=== PATIENT | female | born 1990 | race Caucasian/White ===

== ENCOUNTER 2022-04-22 00:40 | Inpatient (IN) ==
[2022-04-22] MEDS ORDERED: OXYTOCIN 30 UNITS/500 ML BAG IV PRN ×2 (02:11→03:42)
[2022-04-22] MEDS ORDERED: PENICILLIN G POTASSIUM 6 MU in DEXTROSE 5% 250 ML IV STA (02:11)
[2022-04-22] MEDS ORDERED: LIDOCAINE 1% LOCAL 20 ML VIAL INFIL PRN (02:11)
[2022-04-22] MEDS ORDERED: LACTATED RINGER'S 1,000 ML IV PRN (02:11)
--- NOTE | 2022-04-22 02:14 | History & Physical Report ---
Date of Service April 22, 2022 History of Present Illness Primary Care Provider: Krys Jorge Allergies Allergy/AdvReac Type Severity Reaction Status Date / Time No Known Allergies Allergy Verified 04/06/22 12:13 Home Medications Medication Instructions Recorded Confirmed Type prenat.vits,fredy,[id number] 1 tab PO DAILY 02/06/22 04/06/22 History Patient History Medical History (Updated 02/16/22 @ 12:49 by Shaunna Washington) Heart murmur Varicella vaccination Surgical History (Updated 02/15/22 @ 09:03 by Keara Hendrickson) S/P wisdom tooth extraction Family History (Updated 02/15/22 @ 09:05 by Keara Hendrickson) Grandfather (Maternal) Heart disease Grandmother Breast cancer great grandmother Family/Other Autism niece Kleefstra syndrome niece Denies family history of Ovarian cancer Colorectal cancer Social History (Updated 02/15/22 @ 08:56 by Keara Hendrickson) Smoking Status: Former smoker marital status: marital status details: Robbin York (24) Current Living Situation: Spouse and Family Current Living Situation Comment: lives with spouse, 2 children, dogs, cat- spouse changing litter current occupational status: unemployed Results & Data ([facility]) Vital Signs (Past 12 Hours) Vital Signs Temp Resp 04/22/22 01:24 36.7 C 20 Coding
[2022-04-22 02:35] LABS: Hematocrit (blood only) 32.3 % (34.1-44.9); Hemoglobin 11.3 g/dl (12.0-16.0); Mean Corpuscular Hemoglobin 32.4 pg (25.0-34.0); Mean Corpuscular Volume 92.6 fL (80.0-100.0); Mean Platelet Volume 10.3 fL (9.4-12.3); Platelet Count 192 K/uL (130-400); RDW Coefficient of Variation 13.1 % (11.5-14.5); RDW Standard Deviation 43.7 fL (36.4-46.3); Red Blood Count 3.49 M/uL (3.93-5.22); White Blood Count 11.73 K/ul (4.8-10.8)
--- NOTE | 2022-04-22 02:42 | Anesthesiology Consultation ---
Date of Service April 22, 2022 Assessment & Plan ASA ASA2 Proposed Anesthesia Anesthesia Type: Labor Epidural Risk / Benefits Reviewed With: PT / POA / Parent / Guardian, Accepts Plan and Informed Consent Obtained History Height/Weight Height: 5 ft 9 in Weight: 69.853 kg Allergies Allergy/AdvReac Type Severity Reaction Status Date / Time No Known Allergies Allergy Verified 04/06/22 12:13 Medications Home Medications Medication Instructions Recorded Confirmed Last Taken prenat.vits,fredy,[id number] 1 tab PO DAILY 02/06/22 04/06/22 Unknown Active Medications Generic Name Dose Route Start Last Admin Trade Name Freq PRN Reason Stop Dose Admin Lactated Ringer's 1,000 mls @ 125 mls/hr 04/22/22 02:11 04/22/22 02:26 Lr IV 04/24/22 02:10 999 mls/hr .Q8H PRN Administration L&D Protocol Protocol Past Medical History Medical History Heart murmur Varicella vaccination Exercise / Class Metabolic Activity II 4-5 Yardwork/Stairs/Walk up hill Past Family History Family History Grandfather (Maternal) Heart disease Grandmother Breast cancer great grandmother Family/Other Autism niece Kleefstra syndrome niece Denies family history of Ovarian cancer Colorectal cancer Past Surgical History Surgical History S/P wisdom tooth extraction Past Anesthesia History No Hx of Anesthesia Complications and No Family Hx of Anesthesia Complications History of PONV No Hx of PONV and No Hx of Motion Sickness Social History Smoking Status: Current some day smoker Hx Alcohol Use: No Hx Substance Use: No Review of Systems denies fever/cough/ colds/ chest pain/ SOB/ ANICETO denies ANICETO Physical Exam Vital Signs Last Vital Signs Temp 36.7 C 04/22/22 01:24 Resp 20 04/22/22 01:24 ENMT Mouth: no TMJ abnormality and no dentition abnormality Thyromental Distance: > or= 3.5 Finger Breadths Mallampati Class: II Neck neck extension not limited Respiratory normal respiratory effort; no respiratory distress Auscultation: lungs clear to auscultation bilaterally Cardiovascular Rate/Rhythm: regular rate and regular rhythm Neurologic moves all extremities Psychiatric Orientation: alert and oriented x 3 Testing Laboratory Results 04/22/22 02:26
[2022-04-22] MEDS ORDERED: ePHEDrine sulfate 50 MG/ML AMP ONE (02:43)
[2022-04-22] MEDS ORDERED: NALOXONE HCL 1 MG in SODIUM CHLORIDE 0.9% 1000ML 1,000 ML IV PRN (02:43)
[2022-04-22] MEDS ORDERED: BUPIVACAINE 0.25% 30 ML VIAL ONE (02:43)
[2022-04-22] MEDS ORDERED: diphenhydrAMINE 50 MG/ML VIAL IV PRN (02:43)
[2022-04-22] MEDS ORDERED: SODIUM CHLORIDE 0.9% INJ 10 ML VIAL ONE (02:43)
[2022-04-22] MEDS ORDERED: fentaNYL 2MCG/ML ROPIVACAINE 1.25MG/ML 100 ML BAG EPI PRN (02:43)
[2022-04-22] MEDS ORDERED: NALBUPHINE HCL INJ 10 MG/ML AMP IV PRN (02:43)
[2022-04-22] MEDS ORDERED: LIDOCAINE 2%/EPINEPHRINE 1:200,000 20 ML SDV ONE (02:43)
[2022-04-22] MEDS ORDERED: ePHEDrine sulfate 50 MG/ML AMP IV PRN (02:43)
[2022-04-22] MEDS ORDERED: fentaNYL citrate 100 MCG/2 ML VIAL ONE (02:43)
[2022-04-22] MEDS ORDERED: NALOXONE HCL 0.4 MG/1 ML VIAL/CARP IV PRN (02:43)
[2022-04-22] MEDS ORDERED: ONDANSETRON INJ 2 MG/ML 2 ML VIAL IV PRN (02:43)
[2022-04-22] MEDS ORDERED: fentaNYL 2MCG/ML ROPIVACAINE 1.25MG/ML 100 ML BAG EPI ONE (02:44)
[2022-04-22] MEDS ORDERED: BENZOCAINE 20% AER SPR 82.5 GM CAN EXT PRN (03:42)
[2022-04-22] MEDS ORDERED: HYDROCORTISONE ACETATE 25 MG SUPP PR PRN (03:42)
[2022-04-22] MEDS ORDERED: DIPHTHERIA/TETANUS/PERTUSSIS 0.5mL SYR/VIAL (Age 7+yrs) IM ONE (03:42)
[2022-04-22] MEDS ORDERED: ACETAMINOPHEN 325 MG TAB PO PRN (03:42)
[2022-04-22] MEDS ORDERED: bisacodyL 10 MG SUPP PR PRN (03:42)
[2022-04-22] MEDS ORDERED: PENICILLIN G POTASSIUM 3 MU in DEXTROSE 5% 100 ML IV PRN (05:12)
--- NOTE | 2022-04-22 07:59 | Anesthesia Procedure Note ---
Date of Service April 22, 2022 Anesthesia Post Epidural Note Vital Signs Vital Signs: Temp Pulse Resp BP Pulse Ox 36.4 C L 76 18 117/58 L 98 04/22/22 03:46 04/22/22 07:51 04/22/22 03:46 04/22/22 07:51 04/22/22 03:32 Notes Mental Status: alert / awake / arousable Nausea / Vomiting: adequately controlled Pain: adequately controlled Airway Patency, RR, SpO2: stable & adequate BP & HR: stable & adequate Hydration State: stable & adequate Neuraxial Anesthesia: was administered and sensory block is resolving Anesthetic Complications: no major complications apparent Epidural: Removed without complications and With tip intact
--- NOTE | 2022-04-22 08:08 | Delivery Summary ---
DATE OF SERVICE: 04/22/2022 PROCEDURE: Normal spontaneous vaginal delivery. SURGEON: Kimani Doan MD. PREOPERATIVE DIAGNOSES: 1. Single intrauterine at 40 weeks 2 days gestational age. 2. Spontaneous labor. 3. GBS positive. 4. Anti-M antibody positive. 5. Rh negative. POSTOPERATIVE DIAGNOSES: 1. Single intrauterine at 40 weeks 2 days gestational age. 2. Spontaneous labor. 3. GBS positive. 4. Anti-M antibody positive. 5. Rh negative. 6. Status post delivery. ESTIMATED BLOOD LOSS: 100 mL DRAINS: None. FLUIDS: Continuous lactated Ringer. URINE OUTPUT: None. COMPLICATIONS: None. FINDINGS: Viable with weight and Apgars pending. HOSPITAL COURSE: The patient presented to labor and delivery in active labor. She was initially giv en a roughly 1 hour labor check. On labor evaluation, the patient was initially found to be 3 cm dila jelly. On recheck one hour later, she was found to be 4 cm dilated. The patient was admitted and given epidural per request. The patient precipitously was complete-complete, +2 station with a strong urg e to push and within a short period of received an epidural. The patient pushed over approximately 2 contractions to achieve delivery. DESCRIPTION OF PROCEDURE: The patient progressed to 10 cm dilated, 100% effaced, positive 2 station, pushed over intact perineum with epidural anesthesia, delivered a viable with weight and Apg ars as noted above. Head of the delivered in SOFIA position, restituted to right transverse. A tight nuchal cord was noted, which was delivered through. Body and shoulders quickly followed. Ne zeina was noted to be vigorous soon after delivery and 1 minute delayed cord clamping was initiated. Cord was then double clamped and cut. remained on maternal abdomen. Attention was then tur cher to delivery of the placenta, which was delivered, 3-vessel cord, gentle cord traction. On inspect ion of the perineum, vagina and cervix, there was noted to be no lacerations. Sponge and instrument counts were correct at the completion of the case with mother and stable in the immediate pos t-delivery period. Job ID: [id number]
[2022-04-22] MEDS: FERROUS SULFATE 325 MG TAB PO SCH (08:46)
[2022-04-22] MEDS: DOCUSATE SODIUM 100 MG CAP PO SCH ×2 (08:46→20:30)
[2022-04-22] MEDS: PRENATAL VITAMIN 1 TAB PO SCH (08:46)
[2022-04-22] MEDS: IBUPROFEN 600 MG TAB PO PRN (20:30)
[2022-04-23] MEDS: FERROUS SULFATE 325 MG TAB PO SCH (07:43)
[2022-04-23] MEDS: PRENATAL VITAMIN 1 TAB PO SCH (07:43)
[2022-04-23] MEDS: DOCUSATE SODIUM 100 MG CAP PO SCH (07:43)
[2022-04-23] MEDS: IBUPROFEN 600 MG TAB PO PRN (07:43)
--- NOTE | 2022-04-23 07:44 | Obstetrical Progress Note ---
Date of Service April 23, 2022 Assessment & Plan (1) Encounter for care and examination after delivery: satisfactory course continue current care plan discharge today Subjective Ambulation: ambulating normally Voiding: no voiding problems Passing Gas:: Yes Diet Tolerance:: regular diet Lochia:: Small Feeding Type:: breast feeding Review of Systems All systems reviewed & are unremarkable except as noted in HPI & below Physical Exam Constitutional WD/WN, vitals as above Psychiatric A+Ox3, euthymic affect Genitourinary OB Exam Abdomen: + fundal height Fundus: + firm and + relation to umbilicus (2 below) Results & Data ([facility]) Vital Signs (Past 12 Hours) Vital Signs Temp Pulse Resp BP Pulse Ox O2 Del Method 04/23/22 07:33 97.5 F L 78 18 118/81 99 Room Air 04/23/22 03:16 97.7 F 61 18 107/68 99 Room Air 04/22/22 22:53 97.9 F 72 16 111/68 98 Room Air 04/22/22 20:30 97.9 F 76 18 125/82 Room Air
[2022-04-23] MEDS ORDERED: bisacodyL 5 MG TABEC PO SCH (20:00)
== END 2022-04-23 14:20 | disposition home or self-care (01) | DRG 807 ==
LOC: OPB 00:40 → 4S1 00:42 → 4E2 08:32

== ENCOUNTER 2023-06-21 03:49 | Inpatient (IN) ==
[2023-06-21] MEDS ORDERED: LIDOCAINE 1% LOCAL 20 ML VIAL INFIL PRN (04:34)
[2023-06-21] MEDS: LACTATED RINGER'S 1,000 ML IV PRN (04:55)
[2023-06-21] MEDS: PENICILLIN GK 6 MU in DEXTROSE 5% 250 ML IV STA (05:11)
[2023-06-21 05:15] LABS: Hematocrit (blood only) 34.2 % (37.0-47.0); Hemoglobin 11.5 g/dl (12.0-16.0); Mean Corpuscular Hemoglobin 30.3 pg (25.0-34.0); Mean Corpuscular Hgb Conc 33.6 g/dL (32.0-36.0); Mean Corpuscular Volume 90.2 fL (80.0-100.0); Mean Platelet Volume 9.9 fL (9.4-12.4); Platelet Count 323 K/uL (130-400); RDW Coefficient of Variation 13.2 % (11.5-14.5); RDW Standard Deviation 43.8 fL (36.4-46.3); Red Blood Count 3.79 M/uL (4.20-5.40); White Blood Count 15.86 K/ul (4.8-10.8)
[2023-06-21] MEDS: OXYTOCIN 30 UNITS/NSS 30 UNITS/500 ML BAG IV PRN (05:21)
--- NOTE | 2023-06-21 05:34 | History & Physical Report ---
Date of Service June 21, 2023 Assessment & Plan (1) Encounter for supervision of normal in multigravida: Plan: Admit to L&D. EFM/toco. Desires epidural, however suspect will not have enough time to get epidural prior to delivery. There will likely not be enough time for lab to crossmatch appropriate blood. Will send type & screen tube. Given patient's level of discomfort, unable to elicit information from her about her lack of care visits. Came to office for a visit in April, there is a cancelled visit in May, I do not see any messages or communication from her in our chart system. Recommend urine drug screen and social science analyst c onsult to eval/help patient with needs given her lack of care. Admission and Anticipated Discharge Date Admission Date: June 21, 2023 History of Present Illness Chief Complaint: labor Primary Care Provider: Krys Jorge 32yo @ 40 07/14, presented to labor and delivery with contractions, very uncomfortable. Last OB office visit was 04/26/2023. Late Care Need for Rhogam d/t Rh negative mother Anti M positive 02/27/23 q4 weeks titres first titer 02/17--1:1, not titerable Allergies Allergy/AdvReac Type Severity Reaction Status Date / Time No Known Allergies Allergy Verified 04/26/23 12:28 Home Medications Medication Instructions Recorded Confirmed Type prenat.vits,fredy,eww-[id number]-jafto 1 tab PO DAILY 02/06/22 06/21/23 History Patient History Medical History Varicella vaccination Heart murmur Surgical History S/P wisdom tooth extraction Family History Grandfather (Maternal) Heart disease Grandmother Breast cancer Family/Other Autism Kleefstra syndrome Denies family history of Ovarian cancer Colorectal cancer Social History Smoking Status: Former smoker Tobacco Type: Cigarettes Cigarettes Per Day: 1/2 pack; Smoking End Date: at beginning of ; Second Hand Exposure: Yes; Do You Dip or Chew Tobacco: No; Hx Alcohol Use: No Hx Substance Use: No Preferred Language: Indonesian Adapted Physical Education Aide Required: No Beliefs That Will Affect Care: None marital status: marital status details: Robbin York (25) Current Living Situation: Spouse Current Living Situation Comment: lives with spouse, 3 children, dogs, guinea pig,cat-spouse changing litter current occupational status: unemployed 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 Other Information That Helps Us Care for You: No Feels Safe at Home: Yes Safety Concerns: Feels Safe At This Time Assistive Devices: None Review of Systems All systems reviewed & are unremarkable except as noted in HPI & below Physical Exam Physical Exam: 7cm/100/+1 FHT Cat 1 [place] Q 2-3 Constitutional: WD/WN, vitals as above Respiratory: normal respiratory effort, lungs clear to auscultation no respiratory distress Cardiovascular: Rate/Rhythm: regular rate and regular rhythm Gastrointestinal (Abdomen): Inspection/Auscultation: abdomen normal to inspection Percussion/Palpation: abdomen soft; abdomen nontender Gravid. No s/s chorio or abruption. Skin: no rashes, warm and dry Psychiatric: A+Ox3, euthymic affect Results & Data Vital Signs (Past 12 Hours) Vital Signs Temp Pulse Resp BP 06/21/23 04:15 36.8 C 18 06/21/23 04:12 101 H 131/80 Coding Level of Care Code None Diagnoses Encounter for supervision of normal in multigravida Z34.80
--- NOTE | 2023-06-21 05:39 | Delivery Summary ---
Vaginal Delivery Summary Date of Service June 21, 2023 Vaginal Delivery Summary [facility] Vaginal Delivery Summary: Pre-delivery diagnoses: 32yo @ 39 4/7, spontaneous labor, Rh negative, Anti-M positive, insufficient care Post-delivery diagnoses: same Procedure: spontaneous vaginal delivery Surgeon: Catherine Epperson DO Complications: none Findings: Viable male . Apgars: 8/9. Weight pending, please see nursery records Estimated blood loss: 300ml Description of delivery: The patient progressed to complete quickly without anesthesia after spontaneous rupture of membranes for clear fluid. She then began to push. During a push, forebag ruptured with hemostat for clear fluid. She spontaneously vaginally delivered a viable from the cephalic presentation. The head delivered in ANGELI position. Nuchal noted, too tight to reduce, delivered through. The anterior shoulder delivered, followed by the posterior shoulder, followed by the body. The baby was placed on mother's abdomen and a spontaneous cry was heard. Delayed cord clamping was employed, and the cord was doubly clamped and cut. Cord blood was obtained. The placenta was delivered spontaneously intact with a 3-vessel cord. The uterus and vagina were swept of clots and debris. IV pitocin was given. The uterus became firm. The cervix, vagina, and perineum were inspected and no lacerations were noted. Excellent hemostasis was observed. The mother and baby are recovering in stable and good condition in the room. Sponge and instrument counts were correct x 2. Catherine Epperson DO [facility] Vaginal Delivery Charge Vaginal Delivery Codes: 05237 global code for the antepartum, delivery, and post- Delivery Type Details: [facility]
[2023-06-21 05:48] LABS: Amphetamines+Metham, Urine Neg (Neg); Barbiturates, Urine Neg (Neg); Benzodiazepine, Urine Neg (Neg); Cocaine, Urine Neg (Neg); MDMA (Ecstacy), Urine Neg (Neg); Marijuana, Urine Neg (Neg); Methadone, Urine Neg (Neg); Opiate, Urine Neg (Neg); Phencyclidine, Urine Neg (Neg)
[2023-06-21] MEDS ORDERED: OXYTOCIN 30 UNITS/NSS 30 UNITS/500 ML BAG IV PRN (06:20)
[2023-06-21] MEDS ORDERED: oxyCODONE/ACETAMINOPHEN 5mg/325mg TAB PO PRN (06:20)
[2023-06-21] MEDS ORDERED: HYDROCORTISONE ACETATE 25 MG SUPP PR PRN (06:20)
[2023-06-21] MEDS ORDERED: ACETAMINOPHEN 325 MG TAB PO PRN (06:20)
[2023-06-21] MEDS ORDERED: DIPHTHER/TETAN/PERTUS Vaccine (Tdap, Adol/Adult) 0.5mL IM ONE (06:20)
[2023-06-21] MEDS ORDERED: bisacodyL 10 MG SUPP PR PRN (06:20)
[2023-06-21] MEDS: IBUPROFEN 600 MG TAB PO PRN (06:45)
[2023-06-21] MEDS: BENZOCAINE 20% SPRY 85 APPLN/85 GM CAN EXT PRN (06:46)
[2023-06-21] MEDS ORDERED: PENICILLIN GK 3 MU in DEXTROSE 5% 100 ML IV PRN (07:34)
[2023-06-21] MEDS: DOCUSATE SODIUM 100 MG CAP PO SCH (08:13)
[2023-06-21] MEDS: PRENATAL VITAMIN 1 TAB PO SCH (08:14)
[2023-06-21] MEDS: COUGH DROP (SUGAR FREE) LOZ 24 LOZ/1 BOX BUCCAL PRN (15:24)
--- NOTE | 2023-06-22 06:26 | Obstetrical Progress Note ---
Date of Service <Nino Quach MD - Last Filed: 06/22/23 07:20> June 22, 2023 Assessment & Plan <Nino Quach MD - Last Filed: 06/22/23 07:20> (1) (normal spontaneous vaginal delivery): Plan 32 yo , status post on 06/21/23 w/ PMHx of Anti-M positive, Rh-, insufficient pre- care. - Pt doing well clinically. Feels well today. Eating well, voiding well, ambulating well. Pain well controlled with PRN pain meds. - Routine care -- OOB, ambulation, diet progression as tolerated Vital Signs reviewed and WNL. (Tmax at 36.9) with exception of some low DBP's (114/58). Hemoglobin Reviewed. 11.5 (06/21/23) 10.1 (today), without s/s of anemia: no dyspnea, weakness, tachycardia; not pale. Blood Type: A-, GBS-, Rubella Immune. Encourage ambulation, monitor and control pain with Motrin PRN, resume regular diet, monitor lochia. Breast feeding encouraged. After discharge will have 6 week follow-up with Dr. Epperson. Pt counselled on discharge instructions, in the event they are going home today. <Cara Arambula MD, FACOG - Last Filed: 06/22/23 07:43> (1) (normal spontaneous vaginal delivery): Subjective <Nino Quach MD - Last Filed: 06/22/23 07:20> Ambulation: ambulating normally Voiding: no voiding problems Passing Gas:: Yes Diet Tolerance:: regular diet Lochia:: Moderate Feeding Type:: breast feeding (supplemented w formula) Current Pain Level(1-10): 4 (pelvic area, specifically vaginal area) Constitutional: no fever, no chills or no fatigue Ear, Nose, Mouth, Throat: + sore throat; no nasal congestion, no nasal discharge or no post nasal drip Respiratory: + cough (came in w/ cough and sore throat, has not worsened); no chest congestion or no dyspnea Cardiovascular: no chest pain or no palpitations Gastrointestinal: no abdominal pain, no nausea, no vomiting or no diarrhea/loose stools Genitourinary (female): + urinary frequency (drinking alot of fluids); no dysuria or no difficulty urinating Neurologic: no tingling, no numbness or no headache(s) Physical Exam <Nino Quach MD - Last Filed: 06/22/23 07:20> Constitutional WD/WN, vitals as above Respiratory normal respiratory effort, lungs clear to auscultation Auscultation: no crackles and no wheezes Cardiovascular RRR, no murmur, no edema Gastrointestinal (Abdomen) Inspection/Auscultation: abdomen normal to inspection and normal bowel sounds Percussion/Palpation: + abdomen tender (diffuse mild tenderness in suprapubic area) Psychiatric A+Ox3, euthymic affect Results & Data <Nino Quach MD - Last Filed: 06/22/23 07:20> Vital Signs (Past 12 Hours) Vital Signs Temp Pulse Resp BP Pulse Ox O2 Del Method 06/22/23 02:21 36.6 C 78 18 114/58 L 97 Room Air 06/21/23 22:54 36.8 C 64 16 131/81 98 Room Air 06/21/23 20:35 36.9 C 68 18 128/72 98 Room Air Supervising Physician <Cara Arambula MD, FACOG - Last Filed: 06/22/23 07:43> Co-Signing Physician Notes Resident Physician Supervision Note: I interviewed and examined the patient. Discussed with Dr. Marshall and agree with findings and plan as documented in the note. Any exceptions or clarifications are listed here: Doing well. STruggling a bit with breast feeding. Will see nurse today. Then based on that, consider d/c later. Has seen SS and no concerns. Documented By: Cara Arambula MD, FACOG
[2023-06-22 06:59] LABS: Hematocrit (blood only) 30.4 % (37.0-47.0); Hemoglobin 10.1 g/dl (12.0-16.0)
[2023-06-22] MEDS: bisacodyL 5 MG TABEC PO SCH (19:54)
--- NOTE | 2023-06-23 05:45 | Obstetrical Progress Note ---
Date of Service June 23, 2023 Assessment & Plan (1) (normal spontaneous vaginal delivery): Plan 32 yo , status post on 06/21/23 w/ PMHx of Anti-M positive, Rh-, insufficient pre- care. - Pt doing well clinically. Feels well today. Eating well, voiding well, ambula ting well. Pain well controlled with PRN pain meds. - Routine care -- OOB, ambulation, diet progression as tolerated Vital Signs reviewed and WNL. (Tmax at 36.9) with exception of some low DBP's (114/58). Hemoglobin Reviewed. 11.5 (06/21/23) 10.1 (yesterday), without s/s of anemia: no dyspnea, weakness, tachycardia; not pale. Blood Type: A-, GBS-, Rubella Immune. Encourage ambulation, monitor and control pain with Motrin PRN, resume regular diet, monitor lochia. Breast feeding encouraged. After discharge will have 6 week follow-up with Dr. Epperson. Pt counselled on discharge instructions, since they will be going home today. Subjective Ambulation: ambulating normally Voiding: no voiding problems Passing Gas:: Yes Diet Tolerance:: regular diet Lochia:: Small Feeding Type:: breast feeding (planning to pump, store in bottles) Current Pain Level(1-10): 2 (diffuse abdominal pain, decreasing vaginal area) Constitutional: no fever, no chills or no fatigue Ear, Nose, Mouth, Throat: + sore throat; no nasal congestion, no nasal discharge or no post nasal drip Respiratory: + cough (came in w/ cough and sore throat, has not worsened); no chest congestion or no dyspnea Cardiovascular: no chest pain or no palpitations Gastrointestinal: no abdominal pain, no nausea, no vomiting or no diarrhea/loose stools Genitourinary (female): + urinary frequency (drinking alot of fluids); no dysuria or no difficulty urinating Neurologic: no tingling, no numbness or no headache(s) Physical Exam Constitutional WD/WN, vitals as above Respiratory normal respiratory effort, lungs clear to auscultation Auscultation: no crackles and no wheezes Cardiovascular RRR, no murmur, no edema Gastrointestinal (Abdomen) Inspection/Auscultation: abdomen normal to inspection and normal bowel sounds Percussion/Palpation: + abdomen tender (diffuse mild tenderness in suprapubic area) Psychiatric A+Ox3, euthymic affect Results & Data Vital Signs (Past 12 Hours) Vital Signs Temp Pulse Resp BP Pulse Ox O2 Del Method 06/22/23 23:18 36.5 C 75 16 117/64 97 Room Air 06/22/23 19:30 36.7 C 77 14 125/71 99 Room Air
== END 2023-06-23 14:30 | disposition home or self-care (01) | DRG 807 ==
LOC: OPB 03:49 → 4S1 04:04 → 4E1 08:19